=== PATIENT | female | born 1960 | race Caucasian/White ===

== ENCOUNTER → 2022-12-18 | Outpatient (CLI) | payer SELFPAY ==
[2022-12-18 15:18] LABS: Candida species (DNA Probe) Negative (NEGATIVE); G. vaginalis (DNA Probe) Negative (NEGATIVE); T. vaginalis (DNA Probe) Negative (NEGATIVE)
== END | disposition home or self-care (01) ==
LOC: LAB SHORT 10:27
PROVIDERS: Nurse Practitioner Family
DX: N76.0 Acute vaginitis (principal)
CPT/HCPCS: 87480; 87510; 87660

== ENCOUNTER → 2023-08-18 | Outpatient (CLI) | payer OTHER ==
[2023-08-19 11:58] LABS: Candida species (DNA Probe) Negative (NEGATIVE); G. vaginalis (DNA Probe) Negative (NEGATIVE); T. vaginalis (DNA Probe) Negative (NEGATIVE)
== END | disposition home or self-care (01) ==
LOC: LAB 13:37 → LAB SHORT 13:37
PROVIDERS: Nurse Practitioner
DX: N94.9 Unspecified condition associated with female genital organs and menstrual cycle (principal)
CPT/HCPCS: 87480; 87510; 87660

== ENCOUNTER 2025-05-29 07:05 | Emergency (ER) | payer OTHER ==
[~2025-05-29] VITALS: Ht 170.2 cm; Wt 54.4 kg
[~2025-05-29 07:05] MED LIST: CEFD300 PO; PROM25 PO
[2025-05-29] MEDS ORDERED: AMOCLA875 PO (07:53)
[2025-05-29] MEDS ORDERED: MONT10T PO ×2 (07:54)
[2025-05-29] MEDS ORDERED: FLUO10 PO ×2 (07:54)
[2025-05-29] MEDS ORDERED: VALTREX50013 PO (07:54)
[2025-05-29] MEDS ORDERED: [UNRECOGNIZED DRUG - CODE] PO ×2 (07:55)
[2025-05-29 08:02] VITALS: BP 147/89
== END 2025-05-29 08:04 | disposition home or self-care (01) ==
LOC: ER 07:05
DX: K04.7 Periapical abscess without sinus (principal); Z88.2 Allergy status to sulfonamides; Z79.2 Long term (current) use of antibiotics
CPT/HCPCS: 99282; A9270

== ENCOUNTER 2025-06-01 22:30 | Inpatient (IN) | payer OTHER ==
[~2025-06-01] VITALS: Ht 160 cm; Wt 46.8 kg
[~2025-06-01 22:30] MED LIST changes: +AMOCLA875 PO; +FLUO10 PO; +MONT10T PO; +VALTREX50013 PO; +[UNRECOGNIZED DRUG - CODE] PO
[2025-06-01 23:11] LABS: BASOPHILS ABSOLUTE AUTO 0.04 K/mm3 (0.00-0.23); BASOPHILS PERCENT AUTO 1 % (0-2); EOSINOPHILS ABSOLUTE AUTO 0.06 K/mm3 (0.00-0.68); EOSINOPHILS PERCENT AUTO 1 % (0-6); Hematocrit 23.5 % (33.0-51.0); Hemoglobin 8.0 g/dL (11.5-16.0); IMMATURE GRAN ABSOLUTE AUTO 0.03 K/mm3 (0.00-0.10); IMMATURE GRAN PERCENT AUTO 0 % (0-1); LYMPHOCYTES ABSOLUTE AUTO 2.03 K/mm3 (0.84-5.20); LYMPHOCYTES PERCENT AUTO 30 % (21-46); MONOCYTES ABSOLUTE AUTO 0.35 K/mm3 (0.16-1.47); MONOCYTES PERCENT AUTO 5 % (4-13); Mean Corpuscular HGB Conc 34.0 g/dL (31.5-36.5); Mean Corpuscular Volume 95 fL (80-100); NEUTROPHILS ABSOLUTE AUTO 4.34 K/mm3 (1.96-9.15); NEUTROPHILS PERCENT AUTO 63 % (41-73); NRBC ABSOLUTE 0.00 K/mm3 (0.00-0.02); NRBC Auto 0.0 /100 WBC (0.0-0.2); Platelet Count 550 K/mm3 (150-400); RDW Coefficient Variation 13.4 % (11.7-14.2); RDW Standard Deviation 46.3 fL (35.1-46.3)
[2025-06-01 23:28] LABS: Alanine Aminotransfer (ALT/SGP 26.0 U/L (12-78); Albumin, Blood 3.5 g/dL (3.4-5.0); Albumin/Globulin Ratio 1.0 (0.8-1.8); Anion Gap 9.0 mmol/L (3-11); Aspartate Aminotrans (AST/SGOT 19.0 U/L (12-37); Bilirubin, Total 0.2 mg/dL (0.1-1.0); Blood Urea Nitrogen 14.0 mg/dL (8-24); CO2, Blood 26.0 mmol/L (21-32); Calcium, Blood 9.0 mg/dL (8.5-10.1); Chloride, Blood 101.0 mmol/L (98-108); Creatinine, Blood 0.45 mg/dL (0.40-1.00); Globulin, Blood 3.5 g/dL (2.2-4.0); Glucose, Blood 111.0 mg/dL (70-99); Magnesium, Blood 2.0 mg/dL (1.6-2.4); Potassium, Blood 3.4 mmol/L (3.5-5.5); Prothrombin Time Results 10.8 Sec (9.7-11.5); Sodium, Blood 133.0 mmol/L (136-145); Thyroid Stimulating Hormone 0.059 uIU/mL (0.360-4.800); Total Protein, Blood 7.0 g/dL (6.4-8.2)
[2025-06-02] MEDS ORDERED: Haloperidol Lactate Inj. 5 MG/ML Injection ONE (03:08)
[2025-06-02] MEDS ORDERED: Haloperidol Lactate Inj. 5 MG/ML Injection IM ONE (03:10)
[2025-06-02] MEDS ORDERED: LORazepam 2 MG/ML 1ML Injection IV ONE (03:25)
[2025-06-02] MEDS ORDERED: FLU VACC TS2025-26(6MOS UP)/PF 45 MCG/0.5 ML SYRINGE IM SCH (04:15)
[2025-06-02] MEDS ORDERED: LORazepam 2 MG/ML 1ML Injection IV PRN (04:15)
[2025-06-02] MEDS ORDERED: Haloperidol Lactate Inj. 5 MG/ML Injection IM PRN (04:15)
[2025-06-02 04:40] LABS: Source, Urine Clean Catch
[2025-06-02 05:21] LABS: Bilirubin, Urine Neg (Neg); Glucose Qualitative, Urine Neg (Neg); Ketones, Urine Neg (Neg); Leukocyte Esterase, Urine Neg (Neg); Protein, Urine 1+ (Neg); Specific Gravity, Urine 1.020 (1.003-1.022); Urobilinogen, Urine NORM (Normal)
[2025-06-02 05:28] LABS: Color, Urine Yellow (P-Yellow)
[2025-06-02 05:29] LABS: Red Blood Cells, Urine 0-2 /hpf (0-2); White Blood Cells, Urine 0-2 /hpf (0-5)
[2025-06-02 11:27] LABS: BASOPHILS ABSOLUTE AUTO 0.04 K/mm3 (0.00-0.23); BASOPHILS PERCENT AUTO 1 % (0-2); EOSINOPHILS ABSOLUTE AUTO 0.05 K/mm3 (0.00-0.68); EOSINOPHILS PERCENT AUTO 1 % (0-6); Hematocrit 24.2 % (33.0-51.0); Hemoglobin 8.0 g/dL (11.5-16.0); IMMATURE GRAN ABSOLUTE AUTO 0.03 K/mm3 (0.00-0.10); IMMATURE GRAN PERCENT AUTO 1 % (0-1); LYMPHOCYTES ABSOLUTE AUTO 2.24 K/mm3 (0.84-5.20); LYMPHOCYTES PERCENT AUTO 35 % (21-46); MONOCYTES ABSOLUTE AUTO 0.43 K/mm3 (0.16-1.47); MONOCYTES PERCENT AUTO 7 % (4-13); Mean Corpuscular HGB Conc 33.1 g/dL (31.5-36.5); Mean Corpuscular Volume 95 fL (80-100); NEUTROPHILS ABSOLUTE AUTO 3.55 K/mm3 (1.96-9.15); NEUTROPHILS PERCENT AUTO 56 % (41-73); NRBC ABSOLUTE 0.00 K/mm3 (0.00-0.02); NRBC Auto 0.0 /100 WBC (0.0-0.2); Platelet Count 569 K/mm3 (150-400); RDW Coefficient Variation 13.6 % (11.7-14.2); RDW Standard Deviation 47.7 fL (35.1-46.3)
[2025-06-02 11:28] LABS: Alanine Aminotransfer (ALT/SGP 23.0 U/L (12-78); Albumin, Blood 3.1 g/dL (3.4-5.0); Albumin/Globulin Ratio 0.9 (0.8-1.8); Anion Gap 6.0 mmol/L (3-11); Aspartate Aminotrans (AST/SGOT 21.0 U/L (12-37); Bilirubin, Total 0.2 mg/dL (0.1-1.0); Blood Urea Nitrogen 7.0 mg/dL (8-24); CO2, Blood 26.0 mmol/L (21-32); Calcium, Blood 8.7 mg/dL (8.5-10.1); Chloride, Blood 109.0 mmol/L (98-108); Creatinine, Blood 0.47 mg/dL (0.40-1.00); Ferritin, Serum 30.0 ng/mL (8-252); Globulin, Blood 3.3 g/dL (2.2-4.0); Glucose, Blood 92.0 mg/dL (70-99); Magnesium, Blood 2.2 mg/dL (1.6-2.4); Potassium, Blood 4.2 mmol/L (3.5-5.5); Sodium, Blood 137.0 mmol/L (136-145); Total Iron Binding Capacity 329.0 ug/dL (250-450); Total Protein, Blood 6.4 g/dL (6.4-8.2)
[2025-06-02] MEDS ORDERED: Sod Ferric Gluc Complx/Sucrose 125 MG in NS 100 ML IV SCH (13:00)
[2025-06-02 14:16] LABS: U Amphetamine Screen Not Detected; U Barbituate Screen Not Detected; U Benzodiazapine Screen Not Detected; U Cannabinoids Screen DETECTED; U Cocaine Screen Not Detected; U Methadone Screen Not Detected; U Methamphetamine Screen Not Detected; U Opiates Screen Not Detected
[2025-06-02 14:17] LABS: U Buprenorphine Screen Not Detected; U Oxycodone Screen Not Detected; U Phencyclidine Screen Not Detected
[2025-06-02 18:18] VITALS: BP 165/91
--- NOTE | 2025-06-02 18:20 | NUR ---
ADMIT NOTE PATIENT ARRIVED AT 1815, ORIENTED TO THE FLOOR AND CALL LIGHT. PATIENT ARRIVED ANXIOUS, BUT TALKING SLOWLY AND CALMLY HELPS SOOTHES THE PATIENT. BED ALARM ON.
[2025-06-02] MEDS ORDERED: HYDCOR20 PO ×2 (18:33)
[2025-06-02 20:14] VITALS: BP 155/88
[2025-06-03 04:13] VITALS: BP 137/79
--- NOTE | 2025-06-03 04:33 | NUR ---
SHIFT SUMMARY PT ALERT ORIENTED TO SELF AND PLACE UNSURE OF MONTH OR WHY SHES HERE. NO BEHAVIORS THIS SHIFT. SHE DID START TO GET A LITTLE ANXIOUS SO I GAVE HER A DOSE OF ATIVAN AND IT HELPED HER. REMAINS ON AUGMENTIN FOR UTI. SHES BEEN CONT OF URINE THIS SHIFT AND GETS UP TO COMMODE WITH A 1 PERSON SBA. VSS ON RA SATTING AT 91-96%. C/O GENERAL PAIN MEDICATED WITH TYLENOL WITH GOOD RELIEF. NO EPISODES OF AGITATION OR COMBATIVE BEHAVIORS. SHE IS ABLE TO REPOSITION HERSELF IN BED. SHES RESTING IN BED AT THIS TIME WITH CALL LIGHT IN REACH AND BED ALARM ON
[2025-06-03 06:02] LABS: BASOPHILS ABSOLUTE AUTO 0.04 K/mm3 (0.00-0.23); BASOPHILS PERCENT AUTO 1 % (0-2); EOSINOPHILS ABSOLUTE AUTO 0.08 K/mm3 (0.00-0.68); EOSINOPHILS PERCENT AUTO 1 % (0-6); Hematocrit 26.2 % (33.0-51.0); Hemoglobin 8.6 g/dL (11.5-16.0); IMMATURE GRAN ABSOLUTE AUTO 0.01 K/mm3 (0.00-0.10); IMMATURE GRAN PERCENT AUTO 0 % (0-1); LYMPHOCYTES ABSOLUTE AUTO 2.40 K/mm3 (0.84-5.20); LYMPHOCYTES PERCENT AUTO 42 % (21-46); MONOCYTES ABSOLUTE AUTO 0.43 K/mm3 (0.16-1.47); MONOCYTES PERCENT AUTO 8 % (4-13); Mean Corpuscular HGB Conc 32.8 g/dL (31.5-36.5); Mean Corpuscular Volume 95 fL (80-100); NEUTROPHILS ABSOLUTE AUTO 2.71 K/mm3 (1.96-9.15); NEUTROPHILS PERCENT AUTO 48 % (41-73); NRBC ABSOLUTE 0.00 K/mm3 (0.00-0.02); NRBC Auto 0.0 /100 WBC (0.0-0.2); Platelet Count 569 K/mm3 (150-400); RDW Coefficient Variation 13.2 % (11.7-14.2); RDW Standard Deviation 46.2 fL (35.1-46.3)
[2025-06-03 08:20] VITALS: BP 146/92
[2025-06-03] MEDS ORDERED: ACET325 PO ×2 (11:53)
[2025-06-03] MEDS ORDERED: ZYRTEC10 M2 PO ×2 (11:54)
[2025-06-03] MEDS ORDERED: ALBU90OI INH ×2 (11:54)
[2025-06-03] MEDS ORDERED: Norco 5-325 Ta1 EACH PO ×2 (11:56)
[2025-06-03] MEDS ORDERED: LORA.5 PO ×2 (11:58)
[2025-06-03] MEDS ORDERED: ONDA4ODT MM ×2 (12:06)
[2025-06-03] MEDS ORDERED: FT SENNA-S 8.61 EACH PO ×2 (12:10)
[2025-06-03] MEDS ORDERED: NASAL SPRAY88 ML ×2 (12:12)
[2025-06-03] MEDS ORDERED: VALA500 PO ×2 (12:14)
[2025-06-03 12:58] LABS: Anion Gap 9.0 mmol/L (3-11); Blood Urea Nitrogen 8.0 mg/dL (8-24); CO2, Blood 26.0 mmol/L (21-32); Calcium, Blood 8.9 mg/dL (8.5-10.1); Chloride, Blood 104.0 mmol/L (98-108); Creatinine, Blood 0.49 mg/dL (0.40-1.00); Glucose, Blood 89.0 mg/dL (70-99); Potassium, Blood 3.9 mmol/L (3.5-5.5); Sodium, Blood 135.0 mmol/L (136-145)
[2025-06-03] MEDS ORDERED: NS 250 ML IV PRN (13:35)
[2025-06-03] MEDS ORDERED: Albuterol HFA200 ACT/6.7 GM INH INH PRN (14:15)
[2025-06-03] MEDS ORDERED: Saline Nasal Spray 45 ML PRN (14:20)
[2025-06-03 16:49] VITALS: BP 148/99
--- NOTE | 2025-06-03 18:25 | NUR ---
SHIFT SUMMARY PATIENT ALERT AND INTERACTIVE THROUGHOUT THE SHIFT. PATIENT USES CALL LIGHT APPROPRIATELY FOR NEEDS. PATIENT ANXIOUS AND TEARFUL THIS SHIFT. PATIENT WALKED THE HALLS WITH FRONT WHEEL WALKER WITH STAFF AND FRIEND. BED IN LOWEST POSITION FOR SAFETY. CALL LIGHT WITHIN REACH.
[2025-06-03 19:31] VITALS: BP 142/84
--- NOTE | 2025-06-04 03:11 | NUR ---
SHIFT SUMMARY PT ALERT ORIENTED X 4 ABLE TO VERBALIZE NEEDS BUT FORGETS TO USE CALL LIGHT TO GET UP TO BATHROOM AND HAS TO BE REMINDED. BED ALARM IS ON. C/O ANXIETY MEDICATED WITH ATIVAN WITH GOOD RESULTS. AMBULATES TO BATHROOM WITH SBA. NO C/O PAIN NO BEHAVIORS THIS SHIFT. REMAINS ON AUGMENTIN ORDERED RESTING IN BED AT THIS TIME WITH CALL LIGHT IN REACH
[2025-06-04 05:14] VITALS: BP 132/83
[2025-06-04 05:39] LABS: BASOPHILS ABSOLUTE AUTO 0.04 K/mm3 (0.00-0.23); BASOPHILS PERCENT AUTO 1 % (0-2); EOSINOPHILS ABSOLUTE AUTO 0.11 K/mm3 (0.00-0.68); EOSINOPHILS PERCENT AUTO 2 % (0-6); Hematocrit 26.2 % (33.0-51.0); Hemoglobin 8.6 g/dL (11.5-16.0); IMMATURE GRAN ABSOLUTE AUTO 0.02 K/mm3 (0.00-0.10); IMMATURE GRAN PERCENT AUTO 0 % (0-1); LYMPHOCYTES ABSOLUTE AUTO 3.06 K/mm3 (0.84-5.20); LYMPHOCYTES PERCENT AUTO 48 % (21-46); MONOCYTES ABSOLUTE AUTO 0.57 K/mm3 (0.16-1.47); MONOCYTES PERCENT AUTO 9 % (4-13); Mean Corpuscular HGB Conc 32.8 g/dL (31.5-36.5); Mean Corpuscular Volume 95 fL (80-100); NEUTROPHILS ABSOLUTE AUTO 2.54 K/mm3 (1.96-9.15); NEUTROPHILS PERCENT AUTO 40 % (41-73); NRBC ABSOLUTE 0.00 K/mm3 (0.00-0.02); NRBC Auto 0.0 /100 WBC (0.0-0.2); Platelet Count 552 K/mm3 (150-400); RDW Coefficient Variation 13.6 % (11.7-14.2); RDW Standard Deviation 47.8 fL (35.1-46.3)
[2025-06-04 06:03] LABS: Anion Gap 7.0 mmol/L (3-11); Blood Urea Nitrogen 12.0 mg/dL (8-24); CO2, Blood 27.0 mmol/L (21-32); Calcium, Blood 9.0 mg/dL (8.5-10.1); Chloride, Blood 107.0 mmol/L (98-108); Creatinine, Blood 0.52 mg/dL (0.40-1.00); Glucose, Blood 93.0 mg/dL (70-99); Potassium, Blood 4.3 mmol/L (3.5-5.5); Sodium, Blood 137.0 mmol/L (136-145)
[2025-06-04 07:22] VITALS: BP 166/99
[2025-06-04] MEDS ORDERED: Multivitamins 1 Tab PO SCH (09:00)
[2025-06-04] MEDS ORDERED: AMOCLA875 PO ×2 (11:39)
[2025-06-04] MEDS ORDERED: MULVITA PO ×2 (11:39)
[2025-06-04] MEDS ORDERED: NICO21TP TOP ×2 (11:40)
[2025-06-04] MEDS ORDERED: Seroquel Xr50 MG PO ×2 (11:41)
[2025-06-04] MEDS ORDERED: B-1100 M1 PO ×2 (11:43)
[2025-06-04] MEDS ORDERED: FERSU300 PO ×2 (11:43)
== END 2025-06-04 13:00 | disposition home or self-care (01) | DRG 71 ==
LOC: ER 22:30 → ERHOLD 22:31 → MEDS 06-02 15:19 → ERHOLD 06-02 15:20 → MEDS 06-02 18:09
PROVIDERS: Student in an Organized Health Care Education/Training Program; ADMIT Student in an Organized Health Care Education/Training Program
DX: G93.49 Other encephalopathy (principal); E22.2 Syndrome of inappropriate secretion of antidiuretic hormone; K04.7 Periapical abscess without sinus; F10.90 Alcohol use, unspecified, uncomplicated; E87.6 Hypokalemia; F17.210 Nicotine dependence, cigarettes, uncomplicated; D64.9 Anemia, unspecified; F32.A Depression, unspecified; Z98.890 Other specified postprocedural states; F29 Unspecified psychosis not due to a substance or known physiological condition; D50.9 Iron deficiency anemia, unspecified; Z88.2 Allergy status to sulfonamides; Z79.899 Other long term (current) drug therapy
CPT/HCPCS: 36415; 70450; 80048; 80053; 81001; 82728; 83540; 83550; 83735; 84439; 84443; 84481; 85025; 85610; 85730; 96361; 96365; 96366; 96367; 96372; 96372-59; 96375; 99285-25; A6590; A9270; G0378; J1630; J2060; J2916; J3480; J7050; J7120

== ENCOUNTER 2025-07-05 11:13 | Observation (INO) | payer OTHER ==
[~2025-07-05] VITALS: Ht 160 cm; Wt 51.0 kg
[~2025-07-05 11:13] MED LIST changes: +ACET325 PO; +ALBU90OI INH; +B-1100 M1 PO; +FERSU300 PO; +FT SENNA-S 8.61 EACH PO; +HYDCOR20 PO; +LORA.5 PO; +MULVITA PO; +NASAL SPRAY88 ML; +NICO21TP TOP; +Norco 5-325 Ta1 EACH PO; +ONDA4ODT MM; +Seroquel Xr50 MG PO; +VALA500 PO; +ZYRTEC10 M2 PO
[2025-07-05 11:41] LABS: Hematocrit 30.3 % (33.0-51.0); Hemoglobin 10.2 g/dL (11.5-16.0); Mean Corpuscular HGB Conc 33.7 g/dL (31.5-36.5); Mean Corpuscular Volume 90 fL (80-100); NRBC ABSOLUTE 0.00 K/mm3 (0.00-0.02); NRBC Auto 0.0 /100 WBC (0.0-0.2); Platelet Count 338 K/mm3 (150-400); RDW Coefficient Variation 13.8 % (11.7-14.2); RDW Standard Deviation 45.9 fL (35.1-46.3)
[2025-07-05 12:02] LABS: Osmolality, Serum 262.0 mos/KG (275-300)
[2025-07-05 12:04] LABS: Source, Urine Clean Catch
[2025-07-05 12:17] LABS: Alanine Aminotransfer (ALT/SGP 29.0 U/L (12-78); Albumin, Blood 3.7 g/dL (3.4-5.0); Albumin/Globulin Ratio 1.2 (0.8-1.8); Anion Gap 9.0 mmol/L (3-11); Aspartate Aminotrans (AST/SGOT 19.0 U/L (12-37); Bilirubin, Total 0.2 mg/dL (0.1-1.0); Blood Urea Nitrogen 8.0 mg/dL (8-24); CO2, Blood 25.0 mmol/L (21-32); Calcium, Blood 8.5 mg/dL (8.5-10.1); Chloride, Blood 95.0 mmol/L (98-108); Creatinine, Blood 0.47 mg/dL (0.40-1.00); Globulin, Blood 3.1 g/dL (2.2-4.0); Glucose, Blood 99.0 mg/dL (70-99); Potassium, Blood 4.1 mmol/L (3.5-5.5); Sodium, Blood 125.0 mmol/L (136-145); Total Protein, Blood 6.8 g/dL (6.4-8.2)
[2025-07-05 12:20] LABS: Bilirubin, Urine Neg (Neg); Color, Urine Yellow (P-Yellow); Glucose Qualitative, Urine Neg (Neg); Ketones, Urine Neg (Neg); Leukocyte Esterase, Urine Neg (Neg); Protein, Urine Neg (Neg); Specific Gravity, Urine 1.010 (1.003-1.022); Urobilinogen, Urine NORM (Normal)
[2025-07-05 12:38] LABS: BASOPHILS ABSOLUTE MAN 0.06 K/mm3 (0.00-0.23); BASOPHILS PERCENT MAN 1 % (0-2); EOSINOPHILS ABSOLUTE MAN 0.06 K/mm3 (0.00-0.68); EOSINOPHILS PERCENT MAN 1 % (0-6); LYMPHOCYTES % ATYPICAL MANUAL 1 % (0-0); LYMPHOCYTES ABSOLUTE MAN 2.26 K/mm3 (0.84-5.20); LYMPHOCYTES PERCENT MAN 33 % (21-46); MONOCYTES ABSOLUTE MAN 0.19 K/mm3 (0.16-1.47); MONOCYTES PERCENT MAN 3 % (4-13); NEUTROPHILS ABSOLUTE MAN 4.05 K/mm3 (1.96-9.15); SEG NEUTROPHILS PERCENT MAN 61 % (41-73)
[2025-07-05 13:21] LABS: White Blood Cells, Urine 0-2 /hpf (0-5)
[2025-07-05 13:29] LABS: Sodium, Urine, Random 45 mmol/L (20-110)
[2025-07-05 13:43] LABS: Osmolality, Urine 271 mos/kg (15-1400)
[2025-07-05] MEDS ORDERED: FLU VACC TS2025-26(6MOS UP)/PF 45 MCG/0.5 ML SYRINGE IM SCH (14:40)
[2025-07-05] MEDS ORDERED: Lidocaine 2% Viscous Soln 20 ML,Nystatin 100,000 Unit/ml Susp 20 ML,Mag Hydrox/Al Hydro... MT PRN (15:20)
[2025-07-05] MEDS ORDERED: Ipratropium/Albuterol SulF 2.5-0.5MG/3 ML Amp INH PRN (15:30)
[2025-07-05 15:50] LABS: Ferritin, Serum 70.0 ng/mL (8-252); Total Iron Binding Capacity 462.0 ug/dL (250-450)
[2025-07-05 15:51] LABS: CHOL/HDL RATIO 3.0; Cholesterol 204 mg/dL (50-200); HDL Cholesterol 69 mg/dL (>39); LDL/HDL RATIO 1.7; Low Density Lipoprotein Chol 120 mg/dL (0-110); Triglycerides 76 mg/dL (30-160); Very Low Density Lipoprot Chol 15 mg/dL (6-32)
[2025-07-05 18:17] VITALS: BP 133/74
--- NOTE | 2025-07-05 18:22 | NUR ---
ADMIT REPORT RECEIVED FROM ER. PT ARRIVED WITH A FREE WATER RESTRICTION CARRYING A LARGFE GLASS OF WATER. PT A/OX4. ABLE TO TRANSFER FROM W/C TO BED. WALKED TO BATHROOM IND. OLIVE GRIGGS AT THIS TIME. AWAITING TELEMETRY MONTOR FOR PLACEMENT. CARE ONGOING.
[2025-07-05] MEDS ORDERED: Oxcarbazepine300 MG PO (18:35)
[2025-07-05] MEDS ORDERED: QUET100 PO (18:36)
[2025-07-05 20:57] VITALS: BP 135/77
[2025-07-06 00:53] VITALS: BP 141/70
--- NOTE | 2025-07-06 03:39 | NUR ---
CHILDREN'S SERVICE SUPERVISOR SUMMARY PT A&OX4, VSS. ABLE TO COMMUNICATE NEEDS EFFECTIVELY. PT HAS BEEN ASLEEP FOR MOST OF THE SHIFT. CHEST RISE/RESPIRATIONS NOTED. PT STATED LAST CANNABIS USE WAS DAY BEFORE ADMISSION. PROVIDER MARTHA AWARE. NO FURTHER ORDERS AT THIS TIME. REMAINS ON TELE. SR AT 63. REMAINS ON FREE WATER RESTRICTION OF 1,500 ML/DAY. NO FURTHER NEEDS AT THIS TIME. BED RAILS UP X 2, BED IN LOWEST POSITION, BED WHEELS LOCKED, PERSONAL BELONGINGS AND CALL LIGHT WITHIN REACH FOR SAFETY.
[2025-07-06 05:11] VITALS: BP 135/82
[2025-07-06 05:39] LABS: Hematocrit 34.3 % (33.0-51.0); Hemoglobin 11.3 g/dL (11.5-16.0); Mean Corpuscular HGB Conc 32.9 g/dL (31.5-36.5); Mean Corpuscular Volume 92 fL (80-100); NRBC ABSOLUTE 0.00 K/mm3 (0.00-0.02); NRBC Auto 0.0 /100 WBC (0.0-0.2); Platelet Count 422 K/mm3 (150-400); RDW Coefficient Variation 14.2 % (11.7-14.2); RDW Standard Deviation 48.1 fL (35.1-46.3)
[2025-07-06 06:08] LABS: BASOPHILS ABSOLUTE MAN 0.00 K/mm3 (0.00-0.23); BASOPHILS PERCENT MAN 0 % (0-2); EOSINOPHILS ABSOLUTE MAN 0.10 K/mm3 (0.00-0.68); EOSINOPHILS PERCENT MAN 1 % (0-6); LYMPHOCYTES ABSOLUTE MAN 0.98 K/mm3 (0.84-5.20); LYMPHOCYTES PERCENT MAN 9 % (21-46); MONOCYTES ABSOLUTE MAN 0.87 K/mm3 (0.16-1.47); MONOCYTES PERCENT MAN 8 % (4-13); NEUTROPHILS ABSOLUTE MAN 8.96 K/mm3 (1.96-9.15); SEG NEUTROPHILS PERCENT MAN 82 % (41-73)
[2025-07-06 06:15] LABS: Anion Gap 8.0 mmol/L (3-11); Blood Urea Nitrogen 8.0 mg/dL (8-24); CO2, Blood 26.0 mmol/L (21-32); Calcium, Blood 9.1 mg/dL (8.5-10.1); Chloride, Blood 101.0 mmol/L (98-108); Creatinine, Blood 0.44 mg/dL (0.40-1.00); Glucose, Blood 97.0 mg/dL (70-99); Potassium, Blood 4.1 mmol/L (3.5-5.5); Sodium, Blood 131.0 mmol/L (136-145)
[2025-07-06 07:09] VITALS: BP 127/73
[2025-07-06] MEDS ORDERED: Enoxaparin 40 MG/0.4 ML SYR SC SCH (09:00)
[2025-07-06] MEDS ORDERED: VALA500 PO (10:12)
[2025-07-06 11:31] VITALS: BP 134/68
[2025-07-06 12:25] LABS: Anion Gap 6.0 mmol/L (3-11); Blood Urea Nitrogen 9.0 mg/dL (8-24); CO2, Blood 29.0 mmol/L (21-32); Calcium, Blood 9.0 mg/dL (8.5-10.1); Chloride, Blood 100.0 mmol/L (98-108); Creatinine, Blood 0.4 mg/dL (0.40-1.00); Glucose, Blood 89.0 mg/dL (70-99); Potassium, Blood 4.2 mmol/L (3.5-5.5); Sodium, Blood 131.0 mmol/L (136-145)
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
== END 2025-07-06 14:58 | disposition home or self-care (01) ==
LOC: ER 11:13 → MEDS 11:14
PROVIDERS: Emergency Medicine; ADMIT Student in an Organized Health Care Education/Training Program
DX: E87.1 Hypo-osmolality and hyponatremia (principal); E89.3 Postprocedural hypopituitarism; F17.210 Nicotine dependence, cigarettes, uncomplicated; Z88.2 Allergy status to sulfonamides; Z88.8 Allergy status to other drugs, medicaments and biological substances
CPT/HCPCS: 36415; 80048; 80053; 80061; 81001; 82533; 82728; 83540; 83550; 83930; 83935; 84300; 85025; 96372; 99283; A9270; G0378; J1650